=== PATIENT | male | born 1975 ===

== ENCOUNTER 2017-04-05 13:19 | Emergency (ER) | payer BC ==
[2017-04-05 14:40] VITALS: BP 142/77
--- NOTE | 2017-04-05 16:29 | UC ---
Respiratory Complaint HPI - HPI Summary HPI Summary: Cough, congestion, headache for about 8 days. No fever any longer. Cough is mainly dry. He is generally healthy. He has not tried OTC meds yet. - History of Current Complaint Chief Complaint: UCGeneralIllness Stated Complaint: COUGH Time Seen by Provider: 04/05/17 16:15 Hx Obtained From: Patient Onset/Duration: Gradual Onset, Lasting Days, Still Present Timing: Constant Severity Initially: Moderate Severity Currently: Moderate Character: Cough: Nonproductive Aggravating Factors: Deep Breaths, Recumbent Position Alleviating Factors: OTC Meds - Nyquil has helped. Associated Signs And Symptoms: Positive: URI, Nasal Congestion. Negative: Hemoptysis, Dizziness, Calf Pain, Calf Swelling - Allergies/Home Medications Allergies/Adverse Reactions: Allergies Allergy/AdvReac Type Severity Reaction Status Date / Time No Known Allergies Allergy Verified 04/05/17 14:40 PMH/Surg Hx/FS Hx/Imm Hx Previously Healthy: Yes - Surgical History Surgical History: None - Family History Known Family History: Positive: Unknown - Social History Lives: With Family Alcohol Use: Weekly Substance Use Type: None Smoking Status (MU): Never Smoked Tobacco - Immunization History Most Recent Influenza Vaccination: NONE Review of Systems ENT: Sinus Congestion Respiratory: Cough All Other Systems Reviewed And Are Negative: Yes Physical Exam Triage Information Reviewed: Yes Appearance: Well-Appearing, No Pain Distress, Well-Nourished Vital Signs: Initial Vital Signs Temp 99.1 F 04/05/17 14:37 Pulse 96 04/05/17 14:37 Resp 18 04/05/17 14:37 BP 142/77 04/05/17 14:37 Pulse Ox 99 04/05/17 14:37 Vital Signs Reviewed: Yes Eyes: Positive: Conjunctiva Clear. Negative: Conjunctiva Inflamed ENT: Positive: Pharynx normal, Nasal congestion, TMs normal, Uvula midline. Negative: Nasal drainage, Tonsillar swelling, Tonsillar exudate, Trismus, Muffled voice, Hoarse voice Neck: Positive: Supple, Nontender, No Lymphadenopathy Respiratory: Positive: Lungs clear, Normal breath sounds, No respiratory distress, No accessory muscle use. Negative: Respiratory distress, Decreased breath sounds, Accessory muscle use, Crackles, Rhonchi, Stridor, Wheezing Cardiovascular: Positive: No Murmur, Pulses Normal, Brisk Capillary Refill Abdomen Description: Positive: Nontender, No Organomegaly, Soft. Negative: Distended, Guarding Musculoskeletal: Positive: Strength Intact, ROM Intact, No Edema Neurological: Positive: Alert, Muscle Tone Normal. Negative: Fatigued Psychological: Positive: Age Appropriate Behavior Skin: Negative: rashes UC Diagnostic Evaluation - Laboratory O2 Sat by Pulse Oximetry: 99 Respiratory Course/Dx - Course Course Of Treatment: This is c/w viral bronchitis and chest cold. The cough is mainly dry. There are no signs of bacterial pneumonia. - Differential Dx/Diagnosis Provider Diagnoses: uri. acute bronchitis. Discharge - Discharge Plan Condition: Good Disposition: HOME Prescriptions: Azithromyxin SABRINA (NF) [Z-Sabrina (Zithromax) 250 mg tabs #6] 2 tab PO .TODAY, THEN 1 DAILY #6 tab Benzonatate [TESSALON 200 MG CAP] 200 mg PO TID #21 cap Patient Education Materials: Acute Bronchitis (ED), Upper Respiratory Infection (ED) Referrals: No Primary Care Phys,NOPCP [Primary Care Provider] - Additional Instructions: Start azithromycin if not improving in the next 2-3 days. STart robitussin DM, tessalon perles, vics vapo rub in the meantime to try to feel better and help the cough.
== END 2017-04-05 16:35 | disposition home or self-care (01) ==
LOC: UCCORT 13:19
DX: J06.9 Acute upper respiratory infection, unspecified (principal); J20.9 Acute bronchitis, unspecified
CPT/HCPCS: 99212; G0463

== ENCOUNTER 2017-04-28 15:33 | Emergency (ER) | payer BC ==
[2017-04-28 16:40] VITALS: BP 118/69
--- NOTE | 2017-04-28 17:09 | UC ---
Respiratory Complaint HPI - HPI Summary HPI Summary: Pt presents to the with report of persistent cough and intermittent wheeze x 1 month. pt states he was evaluated here several weeks ago after several days of fever, cough and congestion. Pt tx with zithromax and tessalon pearls without improvement. Pt states continues to have cough - states at times "catches his breath" Pt denies fevers, chills. Occasionally has production of yellow/green sputum. pt denies MIX, vision changes. 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 Pt did change toothbrush and pillowcase. Pt has a 1yo child who lays on his chest and coughs in his face. Pt's medications reviewed this visit - History of Current Complaint Chief Complaint: UCRespiratory Stated Complaint: COUGH X 1 MONTH Time Seen by Provider: 04/28/17 16:41 Hx Obtained From: Patient Onset/Duration: Gradual Onset Severity Initially: Mild Severity Currently: Moderate Character: Cough: Productive Aggravating Factors: Deep Breaths Alleviating Factors: Nothing Associated Signs And Symptoms: Negative: Wheezing - Allergies/Home Medications Allergies/Adverse Reactions: Allergies Allergy/AdvReac Type Severity Reaction Status Date / Time No Known Allergies Allergy Verified 04/28/17 16:40 PMH/Surg Hx/FS Hx/Imm Hx Previously Healthy: Yes - Surgical History Surgical History: None - Family History Known Family History: Positive: Unknown - Social History Occupation: Employed Full-time Lives: With Family Alcohol Use: Weekly Substance Use Type: None Smoking Status (MU): Never Smoked Tobacco - Immunization History Most Recent Influenza Vaccination: NONE Review of Systems Constitutional: Fatigue ENT: Nasal Discharge, Sinus Congestion Respiratory: Cough All Other Systems Reviewed And Are Negative: Yes Physical Exam Triage Information Reviewed: Yes Appearance: Well-Appearing, No Pain Distress, Well-Nourished Vital Signs: Initial Vital Signs Temp 98.4 F 04/28/17 16:33 Pulse 79 04/28/17 16:33 Resp 16 04/28/17 16:33 BP 118/69 04/28/17 16:33 Pulse Ox 98 04/28/17 16:33 Vital Signs Reviewed: Yes Eye Exam: Normal Eyes: Positive: Conjunctiva Clear ENT: Positive: Pharynx normal, Nasal congestion. Negative: Sinus tenderness Dental Exam: Normal Neck exam: Normal Neck: Positive: Supple, Nontender, No Lymphadenopathy Respiratory Exam: Normal Respiratory: Positive: Chest non-tender, No respiratory distress, Wheezing - coarse, intermittent cough few scattered wheeze no retractions sentences interrupted with cough, Other: Cardiovascular Exam: Normal Cardiovascular: Positive: RRR, No Murmur, Pulses Normal Abdominal Exam: Normal Abdomen Description: Positive: Nontender, No Organomegaly, Soft Bowel Sounds: Positive: Present Musculoskeletal Exam: Normal Musculoskeletal: Positive: Strength Intact Neurological Exam: Normal Neurological: Positive: Alert Psychological Exam: Normal Psychological: Positive: Normal Response To Family Skin Exam: Normal UC Diagnostic Evaluation - Laboratory O2 Sat by Pulse Oximetry: 98 - Radiology Xray Interpretation: Positive (See Comments) - Patient Name: DEVONTE ESCOBAR Medical Record#: [id number] Radiology Interpretation Completed By: Radiologist Re-Evaluation - Re-Evaluation First Eval Change: Improved - pt improved following neb states deep breath feels better still with cough will Rx pred, abx, flonase Respiratory Course/Dx - Course Course Of Treatment: Pt with persistent ongoing cough x 1 month. intermittent wheeze and production. Will check CXR, neb. anticipate pred. +/- neb. decongestant. abx - Differential Dx/Diagnosis Provider Diagnoses: pneumonia Discharge - Discharge Plan Condition: Stable Disposition: HOME Prescriptions: Albuterol HFA INHALER* [Ventolin HFA Inhaler*] 1 puff INH Q4H PRN #1 mdi PRN Reason: wheeze DOXYcycline CAP(*) [DOXYcycline 100MG CAP(*)] 100 mg PO BID #14 cap Fluticasone NASAL SPRAY 50MCG* [Flonase NASAL SPRAY 50MCG*] 2 spray BOTH NARES DAILY #1 btl predniSONE TAB* [Deltasone TAB*] 50 mg PO DAILY #5 tab Spacer/Aerosol-Holding Chamber [Aerochamber Plus] 1 mis PO Q4HR #1 mis Patient Education Materials: Pneumonia (ED) Referrals: No Primary Care Phys,NOPCP [Primary Care Provider] - Additional Instructions: - STay well hydrated. Drink plenty of non-alcoholic, non-caffinated beverages - take antibiotics 2 times a day as prescribed - USe inhaler - 2 puffs every 4 hours today and tomorrow, then every 4 hours as needed - Take prednisone once daily x 5 days - Okay to use over the counter medication for cough - After you have been on antibiotics for 2 days - change your toothbrush and your pillowcase. These infections are spread by secrtions - do NOT share eating or drinking utensils - clean items you share with other people such as iphone, computer mouse, TV remote, etc - Alternate ibuprofen (Advil, motrin) 600mg and tylenol eveyry 3 hours for pain or fever. - Call your doctor or return with questions or concerns
[2017-04-28] MEDS ORDERED: Albuterol/Ipratropium NEB.SOL* Albuterol 2.5 MG/Ipratropium 0.5 MG 3 ML INH ONE (17:14)
--- NOTE | 2017-04-28 17:46 | RAD ---
Indication: Cough. 2 views of the chest including dual energy PA views demonstrate no mediastinal shift. Heart is normal size and configuration. Airspace disease in left base consistent with left basilar pneumonia is noted. When compared to previous exam of February 21, 2016 findings appear new. IMPRESSION: Findings consistent with left basilar pneumonia.
== END 2017-04-28 18:01 | disposition home or self-care (01) ==
LOC: UCCORT 15:33
DX: J18.9 Pneumonia, unspecified organism (principal); R53.83 Other fatigue; R09.81 Nasal congestion
CPT/HCPCS: 71046; 99212; A9270-GY; G0463

== ENCOUNTER 2017-07-23 15:17 | Emergency (ER) | payer BC ==
[2017-07-23 15:40] VITALS: BP 123/86
--- NOTE | 2017-07-23 15:56 | UC ---
Respiratory Complaint HPI - HPI Summary HPI Summary: Patient has had issues with coughing and thick green sputum beginning in the end of March. At that time he was treated with azithromycin, symptoms continued in April he had chest x-ray diagnosed with bibasilar pneumonia was treated with doxycycline and albuterol inhaler. Now he seems to be feeling essentially better but he has continued cough and thick green and yellow sputum. He denies fever he denies cigarette smoking he does work at [employer] were he is exposed to lots of children and young adults with respiratory illnesses - History of Current Complaint Chief Complaint: UCRespiratory Stated Complaint: COUGH/CONGESTION Time Seen by Provider: 07/23/17 15:39 Hx Obtained From: Patient Onset/Duration: Gradual Onset, Lasting Weeks - 12-15 weeks, Still Present Timing: Constant Pain Intensity: 0 Character: Cough: Productive Aggravating Factors: Nothing Alleviating Factors: Nothing Associated Signs And Symptoms: Positive: URI - Allergies/Home Medications Allergies/Adverse Reactions: Allergies Allergy/AdvReac Type Severity Reaction Status Date / Time No Known Allergies Allergy Verified 04/28/17 16:40 PMH/Surg Hx/FS Hx/Imm Hx Previously Healthy: Yes - tonight - Surgical History Surgical History: None - Family History Known Family History: Positive: Unknown - Social History Occupation: Employed Full-time Lives: With Family Alcohol Use: Weekly Substance Use Type: None Smoking Status (MU): Never Smoked Tobacco - Immunization History Most Recent Influenza Vaccination: NONE Review of Systems Constitutional: Negative Skin: Negative Eyes: Negative ENT: Negative Respiratory: Cough - thick green yellow sputum Cardiovascular: Negative Gastrointestinal: Negative Genitourinary: Negative Motor: Negative Neurovascular: Negative Musculoskeletal: Negative Neurological: Negative Psychological: Negative Is Patient Immunocompromised?: No All Other Systems Reviewed And Are Negative: Yes Physical Exam Triage Information Reviewed: Yes Appearance: Well-Appearing, No Pain Distress, Well-Nourished Vital Signs: Initial Vital Signs Temp 97.4 F 07/23/17 15:33 Pulse 65 07/23/17 15:33 Resp 18 07/23/17 15:33 BP 123/86 07/23/17 15:33 Pulse Ox 99 07/23/17 15:33 Vital Signs Reviewed: Yes Eye Exam: Normal Eyes: Positive: Conjunctiva Clear ENT Exam: Normal ENT: Positive: Normal ENT inspection, Hearing grossly normal, Pharynx normal - Thymomas figured out, TMs normal, Uvula midline. Negative: Nasal congestion, Nasal drainage, Tonsillar swelling, Tonsillar exudate, Trismus, Muffled voice, Hoarse voice, Sinus tenderness Dental Exam: Normal Neck exam: Normal Neck: Positive: Supple, Nontender, No Lymphadenopathy Respiratory Exam: Normal Respiratory: Positive: Chest non-tender, Lungs clear, Normal breath sounds, No respiratory distress, No accessory muscle use Cardiovascular Exam: Normal Cardiovascular: Positive: RRR, No Murmur, Pulses Normal, Brisk Capillary Refill Musculoskeletal Exam: Normal Musculoskeletal: Positive: Strength Intact, ROM Intact, No Edema Neurological Exam: Normal Neurological: Positive: Alert, Muscle Tone Normal Psychological Exam: Normal Skin Exam: Normal UC Diagnostic Evaluation - Laboratory O2 Sat by Pulse Oximetry: 99 - Radiology Xray Interpretation: No Acute Changes Radiology Interpretation Completed By: ED Physician, Radiologist Respiratory Course/Dx - Course Course Of Treatment: Albuterol, mucinex, increase fluids follow with pcp prn - Differential Dx/Diagnosis Provider Diagnoses: Bronchospastic cough Discharge - Sign-Out/Discharge Documenting (check all that apply): Discharge - Discharge Plan Condition: Stable Disposition: HOME Prescriptions: Albuterol HFA INHALER* [Ventolin HFA Inhaler*] 2 puff INH Q4H PRN #1 mdi PRN Reason: cough Patient Education Materials: How to Use a Metered-Dose Inhaler (ED), Acute Cough (ED) Referrals: [facility] [place] [facility]FERRAL [Outside] - 2 Weeks - Billing Disposition and Condition Condition: STABLE Disposition: HOME
--- NOTE | 2017-07-23 16:09 | RAD ---
INDICATION: Cough for 3 months. COMPARISON: There are no prior studies available for comparison. TECHNIQUE: Dual-energy PA and lateral views of the chest were obtained. FINDINGS: The heart is within normal limits in size. Mediastinal and hilar contours appear within normal limits. The lungs are clear. No pleural effusion is present. There has been interval resolution of the previously noted small left basilar infiltrate. IMPRESSION: NO EVIDENCE FOR ACTIVE CARDIOPULMONARY DISEASE.
== END 2017-07-23 17:13 | disposition home or self-care (01) ==
LOC: UCCORT 15:17
DX: R05 Cough (principal)
CPT/HCPCS: 71046; 99212; G0463

== ENCOUNTER 2017-10-10 07:18 | Day surgery (SDC) | payer BC ==
[~2017-10-10 07:18] MED LIST: Acetaminophen TAB* 325 MG PO ONE; Buffered Lidocaine 0.9% SYRIN* 5 ML/SYR SYRINGE INTRADERM ONE; Famotidine IV* 10 MG/ML 2 ML (20 mg) IV ONE; Gabapentin CAP(*) 300 MG PO ONE; celeCOXIB CAP* 200 MG PO ONE
[2017-10-10] MEDS ORDERED: ceFAZolin 2 GM PREMIX (*) 2 GM/50 ML BAG IVPB ONE (07:31)
[2017-10-10] MEDS ORDERED: Gabapentin CAP(*) 300 MG ONE (07:31)
[2017-10-10] MEDS ORDERED: Acetaminophen TAB* 325 MG ONE (07:31)
[2017-10-10] MEDS ORDERED: celeCOXIB CAP* 100 MG ONE (07:31)
[2017-10-10] MEDS ORDERED: Famotidine IV* 10 MG/ML 2 ML (20 mg) ONE (07:31)
[2017-10-10] MEDS ORDERED: Ondansetron INJ* 2 MG/ML VIAL ONE (07:51)
[2017-10-10] MEDS ORDERED: Cisatracurium* 2 MG/ML MDV 5 ML ONE (07:51)
[2017-10-10] MEDS ORDERED: fentaNYL* 50 MCG/ML 2 ML VIAL (100 MCG VIAL) ONE (07:51)
[2017-10-10] MEDS ORDERED: ROPIVACAINE 5 MG/ML 30 ML BTL (0.5%) ONE (07:51)
[2017-10-10] MEDS ORDERED: KETAMINE HCL* 50 MG/ML 10 ML VIAL ONE (07:51)
[2017-10-10] MEDS ORDERED: Propofol* 10 MG/ML 20 ML BTL IV PUSH ONE (07:51)
[2017-10-10] MEDS ORDERED: Lidocaine 2% PF * 5 ML VIAL ONE (07:51)
[2017-10-10] MEDS ORDERED: Midazolam* 1 MG/ML 10 ML VIAL (10 MG) ONE (07:51)
[2017-10-10] MEDS ORDERED: Dexamethasone IV* 4 MG/ML 1 ML (4 MG) ONE (07:51)
[2017-10-10] MEDS ORDERED: EPINEPHRINE 1 MG/ML 1 ML VIAL ONE (08:17)
[2017-10-10] MEDS ORDERED: Bupivacaine 0.5% PF 10 ML VIAL INJ ONE (08:18)
[2017-10-10] MEDS ORDERED: HYDROmorphone INJ* 0.5 MG/0.5 ML SYRINGE ONE (10:42)
[2017-10-10] MEDS ORDERED: HYDROmorphone INJ* 0.5 MG/0.5 ML SYRINGE IV PRN (10:51)
[2017-10-10] MEDS ORDERED: Ondansetron INJ* 2 MG/ML VIAL IV PRN (10:51)
[2017-10-10] MEDS ORDERED: DiMENhydriNATE IV* 50 MG/ML VIAL IV PUSH PRN (10:51)
[2017-10-10] MEDS ORDERED: Naloxone* 0.4 MG/ML 1 ML VIAL IV PRN (10:51)
[2017-10-10] MEDS ORDERED: fentaNYL* 50 MCG/ML 2 ML VIAL (100 MCG VIAL) IV PRN (10:51)
[2017-10-10] MEDS ORDERED: oxyCODONE TAB* 5 MG TAB ONE ×2 (11:55→12:20)
[2017-10-10 12:44] VITALS: BP 150/99
--- NOTE | 2017-10-12 22:13 | OP ---
DATE OF OPERATION: 10/10/17 - [facility] DATE OF : 73 SURGEON: Geoff Christiansen MD TOXICOLOGY TEACHER: TERESITA Bullock. A physician legal assistant was required for the length of the procedure for positioning, manipulation, assistance with instrumentation, and closure. ANESTHESIOLOGIST: Sameer Griggs MD ANESTHESIA: General anesthesia, local anesthesia with approximately 30 cc of Marcaine 0.5% without epinephrine. PRE-OP DIAGNOSES: 1. Right shoulder superior labrum tear. 2. Likely right shoulder posterior labrum tear. 3. Small paralabral cyst adjacent to posterosuperior labrum, right shoulder. 4. Right shoulder posterior glenoid articular cartilage defect. 5. Right shoulder rotator cuff tendon, supraspinatus, tendinopathy, possible partial-thickness tear. 6. Stiff right shoulder. 7. Right shoulder subacromial impingement. POST-OP DIAGNOSES: 1. Right shoulder superior labrum tear. 2. No clear unstable posterior labrum tear, right shoulder. 3. Right shoulder articular cartilage defect posterior glenoid. 4. No right shoulder rotator cuff tear, high-grade. 5. Stiff right shoulder. 6. Right shoulder subacromial impingement. 7. Unclear existence of right shoulder paralabral cyst. OPERATIVE PROCEDURE: 1. Right shoulder manipulation under anesthesia. 2. Right shoulder extensive arthroscopic debridement including debridement of superior labrum, debridement of posterior labrum, debridement of articular cartilage of the glenoid at the location of articular cartilage injury, bursectomy in the subacromial space. 3. Right shoulder arthroscopic subacromial decompression. 4. Right shoulder open proximal biceps tenodesis, subpectoral. 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 The patient had made no significant progress with over 6 weeks of physical therapy and with a cortisone injection by Dr. Nan Valentin, subacromial. The patient was very concerned about his ability to throw a football in the near distant future with his student athletes as well as with his family. I believe that the patient's superior and posterior labrum and posterior glenoid articular cartilage were most symptomatic. However, his rotator cuff did have some signal change to it in the supraspinatus and there did look to be a curve to the anterior aspect of the acromion. The patient opted for surgery. We discussed risks and potential complications of surgery. We discussed timeline of recovery depending on the exact procedure performed. ANTIBIOTICS: Ancef 2 g IV. IV FLUIDS: 1400 cc crystalloid. [id number] TIME: 74 minutes. TOTAL ARTHROSCOPIC FLUID UTILIZED: 8 L total, which would make the equivalent of 2.7 bags each containing 3 L. SPECIMEN: None. IMPLANTS: Arthrex proximal biceps tendon unicortical button x1. COMPLICATIONS: None. DESCRIPTION OF PROCEDURE: In preoperative holding, the patient signed a written consent. Operative extremity was marked in preoperative holding. It is my understanding that a regional anesthetic, interscalene was first recommended by Anesthesia. However, the patient was quite anxious. He was moving around a lot, anxious and also heavier, with a BMI of 26.7, although quite muscular about the neck, so it was decided that there would not be a regional anesthetic block. The patient was brought back to the operating room and placed supine on the operating room table. The patient was sedated and intubated. A mini time-out was performed. I then performed an examination under anesthesia. This revealed that the patient had 180 degrees of forward flexion, 90 degrees of external and approximately 45 degrees of internal rotation. I performed manipulation and was able to get that internal rotation to about 80 degrees. The patient was then changed to the lateral decubitus position. Axillary rolled placed. Beanbag hardened. All bony prominences padded. The right shoulder was placed in longitudinal traction with the appropriate amount of forward flexion and abduction, 15 pounds. Right shoulder was prepped and draped and surgical time-out was performed. I placed a spinal needle into the glenohumeral joint from posterior and infused 30 cc. I then made a posterior glenohumeral joint portal using standard technique. I commenced my diagnostic arthroscopy. The patient had no clear rotator cuff tear whatsoever nor any fraying of the rotator cuff, supraspinatus, infraspinatus or subscapularis. Biceps tendon seemed uninjured. However, quite noticeable was a supraphysiologic thickness of the superior labrum. It was quite long, lying down over much of the glenoid. There was some discoid nature to it and it seemed hypermobile. There was no clear posterior labrum tear yet visualized. There was a clear articular cartilage defect in the posterior glenoid. I applied the lateral traction jet from [employer]. I then created an anteroinferior and an anterosuperior portals. Before switching to the anterosuperior portal for my visualization, I released the proximal biceps near its origin with a scissors. I did this because I believe that the action of the biceps was likely contributing to some excessive movement of the superior and posterosuperior labrum, leading to some of the patient's symptoms. I then visualized the anterosuperior portal. This allowed me to again visualize the rotator cuff very well including posterior to confirm no undersurface rotator cuff tendon tear. There was no anterior labral pathology. I was able to evaluate the posterior labrum. It rowed up nicely onto the glenoid. I did not see certainly any unstable posterior labrum. Difficult to determine along the length of the posterior labrum if there was perhaps any small defect in the continuum between glenoid and posterior labrum, but there was not that I was able to appreciate with my arthroscopic probe. Also, looking at the posterior capsule, I was surprised that it did not look overtly thickened at all. Therefore, there was no posterior capsule to release to help with internal rotation range of motion. In fact, the posterior aspect of the glenohumeral joint was quite patulous and efficacious. I debrided some of the superior labrum, debulking it as I had earlier. I debrided some unstable articular cartilage about the grade 4 lesion in the posterior and posteroinferior glenoid. I sheared some frayed tissue of the posterior labrum, but the posterior labrum otherwise looked nicely intact with no clear defect. I removed the instruments and fluid from the glenohumeral joint. I then entered the subacromial space from posterior and anterior. There was much bursitis. I established a lateral subacromial portal under direct visualization. I used an arthroscopic shaver to debride the bursitic tissue in the subacromial space. I then used an arthroscopic jodie from lateral to debride the anterior curve of the acromion from anterolateral all the way to the AC joint. This opened up nicely the subacromial space. I removed fluid and instruments from the subacromial space. I closed the skin incisions with [id number] and 12 stitches using nylon 3-0 suture. Beanbag was softened. The patient was transferred to a supine position with Anesthesia watching carefully the head and neck. The patient was returned over the table. Instrumentation was switched from arthroscopic to open. I made a small approximately 3 cm longitudinal incision about the anteromedial aspect of the proximal right upper arm. I dissected down to the inferior edge of the pectoralis major tendon and followed that to the bicipital groove. I removed the long head of the biceps tendon after having placed retractors. I drilled a pin just inferior to the pectoralis major tendon into the anterior cortex of the proximal humerus. I next determined the correct length tension relationship for my biceps repair. I next placed 3 stitches into the biceps tendon using FiberLoop suture. I loaded the button. I passed the button, flipped the button and tied a knot. I placed 1 more stitch into the tendon. I removed excess suture and proximal tendon. Irrigation. Closure of the subcutaneous tissue with buried simple stitches using Vicryl 3-0 suture. Closure of the subcuticular layer with a running stitch using Monocryl 4-0 suture. Mastisol, Steri-Strips. 4x4, Tegaderm. Then, I covered the other arthroscopic skin incision sites with Xeroform and then 4x4s and then ABDs and then foam tape. A cooling unit and a shoulder sling were applied. The patient was awakened, extubated and transferred to the PACU. DISPOSITION: The patient was discharged home when medically stable. The patient will receive aspirin 325 mg p.o. b.i.d. x14 days postoperatively for DVT prophylaxis. He will receive Keflex 500 mg p.o. 4 times a day x5 days for infection prophylaxis and Percocet p.r.n. for pain. The patient will follow up in clinic with TERESITA Bullock in 10 to 14 days. He will then see me in clinic approximately 6 weeks postoperative, 4 weeks after his visit with Av. The patient will start physical therapy immediately. [id number]/[facility] #: [id number] [facility]ENTERHe[facility]
== END 2017-10-10 12:46 | disposition home or self-care (01) ==
LOC: OR 07:18
PROVIDERS: ATTEND Orthopaedic Surgery
DX: M75.41 Impingement syndrome of right shoulder (principal); M24.111 Other articular cartilage disorders, right shoulder; M24.811 Other specific joint derangements of right shoulder, not elsewhere classified; F41.9 Anxiety disorder, unspecified; R05 Cough
CPT/HCPCS: A9270-GY; J0690; J1100; J1170; J2250; J2405; J2704; J2795; J3010